=== PATIENT | male | born 1950 | race Caucasian/White ===

== ENCOUNTER 2016-07-29 03:55 | Inpatient (IN) | payer OTHER ==
[~2016-07-29] VITALS: Ht 182.9 cm; Wt 104.3 kg
[~2016-07-29 03:55] MED LIST: AMLODIPINE BESYL5 M1 PO; ATORVASTATIN CA20 M1 PO; DULOXETINE HCL30 MG PO; ELIQUIS5 M1 PO; FLECAINIDE ACE100 M1 PO; LOSARTAN POTASS25 M1 PO; TOPROL XL50 M1 PO
--- NOTE | 2016-07-29 15:02 | Admission Core Measures ---
Admission Meds I reviewed the following Meds: Current Medications Sig/Glenys Start time Last Medication Dose Stop Time Status Admin Acetaminophen 975 MG ONCE 07/29 NR (Tylenol) 07/29 2358 Amlodipine Besylate 5 MG DAILY 07/30 1000 UNVr (Norvasc) Cefazolin Sodium 2,000 MG ONCE 07/29 NR (Kefzol-Ancef Inj) 07/29 2358 Duloxetine HCl 30 MG DAILY 07/30 1000 UNVr (Cymbalta) Flecainide Acetate 100 MG BID 07/29 2199 UNVr (Tambocor 50 MG Tab) Losartan Potassium 25 MG DAILY 07/30 1000 UNVr (Cozaar) Metoprolol Succinate 50 MG DAILY 07/30 999 UNVr (Toprol Xl) Oxycodone HCl 10 MG ONCE 07/29 NR (Roxicodone) 07/29 2358 Acute Coronary Syndrome Inclusion Criteria ACS Diagnosis No Inpatient Core Measures LDL Reminder: If No, please order W/I first 24hr of stay Congestive Heart Failure Inclusion Criteria CHF Diagnosis No Cerebrovascular accident Inclusion Criteria CVA/TIA Diagnosis No Inpatient Core Measures Bedside Swallow Eval Reminder: If BSE failed, place ST order Antithrombotic Reminder: Order Antithrombotic Medication by end of day 2 Antithrombotic Reminder: Document Reason Antithrombotic Not ordered by end of day 2 AFIB/Flutter Reminder: If Present, add to problem list AFIB/Flutter Reminder: Order Anticoag Medication for pts with AFIB/Flutter Atherosclerosis Reminder: If Present, add to problem list LDL Reminder: If No, please order W/I first 24hr of stay PT Order Reminder: If No, please order Venous thromboembolism Inpatient Core Measures VTE Risk Factors: Age > 40, Surgery No [facility] VTE prophylaxis d/t No contraindications No VTE Pharm Prophylaxis d/t No contraindications Inclusion Criteria - Per Current guidelines, there needs to be overlap - treatment for the first 5 days of Warfarin therapy. - Parenteral Anticoagulation (IV or SC) needs to be - given along with Warfarin therapy. VTE Diagnosis No VTE Type NONE VTE Confirmed by (Test) NONE Problem List As ranked by this Provider includes Assessment & Plan 1. S/P total knee replacement HOME MEDS Home Med List Amlodipine Besylate 5 MG TABLET 1 TAB PO DAILY HTN (Reported) Duloxetine HCl 30 MG CAPSULE.DR 1 CAP PO DAILY depression (Reported) Flecainide Acetate 100 MG TABLET 1 TAB PO BID A FIB (Reported) Losartan Potassium 25 MG TABLET 1 TAB PO DAILY HTN (Reported) Metoprolol Succ XL (Toprol Xl) 50 MG TAB 1 TAB PO DAILY HTN (Reported) Discontinued Medications Apixaban (Eliquis) 5 MG TABLET 1 TAB PO BID A FIB (Reported) Discontinued reason: Changed Dose
--- NOTE | 2016-07-29 15:05 | Surgical Discharge Summary ---
Visit Information Visit Dates Admission Date: 07/29/16 Discharge Date: 08/01/2016 History of Present Illness Chief Complaint: See H and P Surgical History Pertinent Surgical History: non-contributory Review of Systems: See H and P Hospital Course Course Attending Physician: JAHAIRA RUFF MD Primary Care Physician: AWA ZHAO,[facility] Course: Pt was admitted on 07/29 after undergoing a left tkr by Dr Ruff. He tolerated the procedure well. Over the course of the next couple of days, he was able to void without difficulty, his pain was well controlled with oral pain medication and he worked with PT. He was deemed stable for discharge by PT to home with services. He was continued on eliquis post op for both a fib and dvt prophylaxis post op joint replacement. Allergies: Coded Allergies: banana (Severe, ANAPHYLAXIS 07/25/16) latex (Severe, ANAPHYLAXIS 07/25/16) Penicillins (Mild, HIVES 07/29/16) Disposition Summary Disposition Principal Diagnosis: DJD Additional Diagnosis: a fib Discharge Disposition: home health services Discharge Instructions General Discharge Information Code Status: Full Code Patient's Diet: heart healthy Patient's Activity: WBAT Follow-Up Instructions/Appts: Keep scheduled appointment, call sooner if needed Medications at Discharge Discharge Medications: Stop taking the following medications: Apixaban (Eliquis) 5 MG TABLET ORAL TWICE DAILY Continue taking these medications: Metoprolol Succ XL (Toprol Xl) 50 MG TAB 1 Tablet ORAL DAILY Losartan Potassium (Losartan Potassium) 25 MG TABLET 1 Tablet ORAL DAILY Amlodipine Besylate (Amlodipine Besylate) 5 MG TABLET 1 Tablet ORAL DAILY Duloxetine HCl (Duloxetine HCl) 30 MG CAPSULE.DR 1 Capsule ORAL DAILY Flecainide Acetate (Flecainide Acetate) 100 MG TABLET 1 Tablet ORAL TWICE DAILY Start taking the following new medications: Docusate Sodium (Colace) 100 MG CAPSULE 1 Capsule ORAL TWICE DAILY Qty = 14 No Refills Polyethylene Glycol 3350 (Miralax) 17 GRAM POWD.PACK 1 Packet ORAL DAILY Qty = 7 No Refills Instructions: dissolve in water Hydromorphone HCl (Dilaudid) 4 MG TABLET 1-2 Tablet ORAL EVERY 4 HOURS NEEDED Qty = 36 No Refills Morphine Sulfate (Ms Contin) 30 MG TABLET.ER 1 Tablet ORAL TWICE DAILY Qty = 12 No Refills Apixaban (Eliquis) 2.5 MG TABLET 1 Tablet ORAL TWICE DAILY Qty = 60 No Refills Instructions: Take 2.5 mg twice daily instead of the eliquis 5mg tabs. Continue for a total of 30 days. Then return to previous dose of 5mg twice daily. Do not take both at the same time.
--- NOTE | 2016-07-29 15:07 | Patient Discharge Instructions ---
Discharge Instructions General Discharge Information You were seen/treated for: knee pain You had these procedures: total knee replacement Watch for these problems: temp>101, increased redness or drainage of wound, inability to bear weight Do not soak the wound: Yes No bath, but you may shower: Yes Other wound care: Keep incision clean and dry Special Instructions: Take the new dose of eliquis 2.5mg twice daily for the next 30 days. Do not take the previous dose of 5mg twice daily at the same time. After 30 days, return to previously prescribed dose of 5mg twice daily. Diet Recommended Diet: Heart Healthy Activity Activity Self Limited: Yes Activity Limited to: Weight bear as tolerated Acute Coronary Syndrome Inclusion Criteria At DC or during hospital stay patient has or had the following: ACS DIAGNOSIS No Discharge Core Measures Meds if any: Prescribed or Continued at Discharge Meds if any: NOT Prescribed or Continued at Discharge Congestive Heart Failure Inclusion Criteria At DC or during hospital stay patient has or had the following: CHF DIAGNOSIS No Discharge Core Measures Meds if any: Prescribed or Continued at Discharge Meds if any: NOT Prescribed or Continued at Discharge Cerebrovascular accident Inclusion Criteria At DC or during hospital stay patient has or had the following: CVA/TIA Diagnosis No Discharge Core Measures Meds if any: Prescribed or Continued at Discharge Meds if any: NOT Prescribed or Continued at Discharge Venous thromboembolism Inclusion Criteria VTE Diagnosis No VTE Type NONE VTE Confirmed by (Test) NONE Discharge Core Measures - Per Current guidelines, there needs to be overlap - treatment for the first 5 days of Warfarin therapy. - If discharged on Warfarin prior to 5 days of - overlap therapy, the patient will need to be - assessed for post discharge needs including - *Post discharge parental anticoagulation - *Warfarin and/or parental anticoagulation education - *Follow up date to check INR post discharge At least 5 days overlap therapy as Inpatient No Meds if any: Prescribed or Continued at Discharge Note: Overlap Therapy is Warfarin and Anticoagulant Meds if any: NOT Prescribed or Continued at Discharge
[2016-07-29] MEDS ORDERED: MS CONTIN30 M1 PO (15:09)
[2016-07-29] MEDS ORDERED: MIRALAX17 G1 PO (15:09)
[2016-07-29] MEDS ORDERED: COLACE100 M1 PO (15:09)
[2016-07-29] MEDS ORDERED: DILAUDID4 M1 PO (15:09)
--- NOTE | 2016-07-29 16:41 | Operative Report ---
Operative/Inv Procedure Report Surgery Date: 07/29/16 Name of Procedure: Left total knee replacement Pre-Operative Diagnosis: Primary left knee DJD Post-Operative Diagnosis: Same Estimated Blood Loss: 50ml to 100ml Surgeon/Deputy Sheriff [id number] Handler: ELZBIETA ZHAO,JAHAIRA Tomas Anesthesia: block Operative/Procedure Note Note: Description of Procedure: The patient was taken to the operating room and positively identified. After induction of spinal anesthesia and administration of appropriate pre-operative antibiotics, the patient was positioned supine on the operating room table and all bony prominences were well padded. A well-padded pneumatic tourniquet was placed on the left upper thigh. After performing a surgical timeout, the left lower extremity was prepped and draped in the usual sterile fashion. After exsanguination with Esmarch the tourniquet was inflated to 250mm of mercury. A standard medial parapatellar approach was made to the knee. This was carried down through skin and subcutaneous tissue to the level of the fascia. Meticulous hemostasis was maintained with Bovie electrocautery. The extensor mechanism and patellar retinaculum were opened sharply and the patella was everted. The infrapatellar fat was resected in order to improve exposure. Osteophytes were trimmed from the patella and femoral condyles and the patella was re-everted and tucked laterally. A medial release was performed and the cruciate ligaments were resected. The tibia was then subluxed anteriorly. Utilizing the appropriate extra-medullary guide, the proximal tibia was trimmed perpendicular to the long axis of the tibial shaft. Attention was then turned to the femur. After opening the medullary canal, the distal femoral cut was made in 6 degrees of valgus utilizing the appropriate intra-medullary guide. The extension gap was checked and found to be appropriate. The femur was then sized and the remainder of the femoral cuts were made with a size 5 4-in-1 femoral cutting guide. The flexion gap was checked and found to be symmetric and appropriate. The knee was then trialed with a size 5 femoral component, a size 6 tibial component and a size 13 mm polyethylene insert. The patella was not resurfaced due to its excellent preoperative condition. This yielded excellent range of motion, stability and patellar tracking. All trial components were removed and the knee was copiously irrigated with sterile saline. All components were cemented into place with [place] Simplex cement. All the components were of the Kim Triathlon knee system of the above stated sizes. The knee was again irrigated after cementation. The extensor mechanism and patellar retinaculum were repaired using interrupted #1 vicryl suture. The skin was re-approximated with 2-0 vicryl and closed with jennie. A sterile dressing was applied, the tourniquet was deflated, the patient was awakened and taken to the recovery room in satisfactory condition.
[2016-07-29] MEDS ORDERED: ELIQUIS2.5 M1 PO (17:20)
--- NOTE | 2016-07-29 18:12 | PN- Orthopedic ---
Subjective Subjective: POC S/P LEFT TKA NO MAJOR COMPLAINTS NOW DENIES CP, SOB, NO N+V, NO PALPITATIONS Objective Vital Signs and I&Os VSS Physical Exam: CV: NSR, NO ECTOPY LUNGS: CLEAR ABD: SOFT, +BS EXT: LEFT LE DRSG DRY DISTAL CMS TOES WARM C/O TINGLING IN LEFT BIG TOE Assessment/Plan Assessment/Plan ORTHO STABLE PLAN NO AFIB NOTED SINCE ADMISSION TODAY HE DENIES CARDIAC SYPTOMS FOR MORE THAN 4 MONTHS CURRENTLY DENIES CP, PALPITATIONS ELIQUIS CHANGED ROM 5MG PO BID TO 2.5MG PO BID ADDUCTOR CANAL BLOCK BEING PLACED BY ANESTHESIA NOW OK FOR FLOOR TRANSFER Core Measures/Miscellaneous Venous Thromboembolism VTE Risk Factors: Age > 40, Surgery VTE Contraindications: No Contraindications VTE Diagnosis: No VTE Type: NONE VTE Confirmed by (Test): NONE Beta Tolu Is Beta Tolu a Home Med? Yes Antibiotics Is Patient on Antibiotics? Yes
[2016-07-29 20:50] VITALS: BP 120/80
[2016-07-29 23:20] VITALS: BP 118/84
[2016-07-30 01:00] VITALS: BP 118/78
[2016-07-30 02:49] VITALS: BP 118/62
[2016-07-30 07:26] VITALS: BP 118/62
[2016-07-30 08:16] LABS: ABSOLUTE BASOPHIL COUNT 0 /CUMM (0.0-0.2); ABSOLUTE EOSINOPHIL COUNT 0 /CUMM (0.0-0.7); ABSOLUTE GRANULOCYTE CT 13.4 /CUMM (1.4-6.5); ABSOLUTE LYMPH COUNT 0.5 /CUMM (1.2-3.4); ABSOLUTE MONOCYTE COUNT 0.3 /CUMM (0.10-0.60); BASOPHIL % 0 % (0.0-2.0); EOSINOPHIL % 0 % (0-5); HEMATOCRIT 37.8 % (42-52); MEAN CORPUSCULAR HGB 31.9 PG (27.0-31.0); MEAN CORPUSCULAR HGB CONC 33.9 G/DL (33.0-37.0); MEAN CORPUSCULAR VOLUME 94.1 FL (80.0-94.0); MEAN PLATELET VOLUME 8.4 FL (7.4-10.4); PLATELET COUNT 242 /CUMM (130-400); RBC DISTRIBUTION WIDTH 12.2 % (11.5-14.5); RED BLOOD CELL CT 4.01 /CUMM (4.70-6.10); WHITE BLOOD CELL COUNT 14.2 /CUMM (4.8-10.8)
--- NOTE | 2016-07-30 08:34 | PN- Orthopedic ---
Subjective Subjective: Complaints of pain to the anterior knee, pain is controlled with IV morphine. He is voiding, denies any fever or flulike illness pain no chest pain or shortness of breath. Objective Vital Signs and I&Os Vital Signs Date Time Temp Pulse Resp B/P B/P Pulse O2 O2 Flow FiO2 Mean Ox Delivery Rate 07/30 07 97.7 67 20 118/62 91 Room Air 07/30 0249 97.7 90 20 118/62 90 Room Air 07/30 0100 97.7 69 20 118/78 95 CPAP 07/29 2320 97.6 66 18 118/84 92 Room Air 07/29 2050 97.6 64 18 120/80 91 Room Air Intake & Output 07/30 0000 07/29 1600 07/29 0000 Intake Total 800 Output Total 600 300 Balance 200 -300 Intake, IV 800 Output, Urine 600 300 Patient 230 lb Weight Physical Exam: Well-developed well-nourished no apparent distress. HEENT: Atraumatic, extraocular motion intact Neck: Supple, no lymphadenopathy Respiratory: No respiratory distress Extremities: No edema LEFT lower extremity dressing in place, Range of motion is 0-[address] ALPS in place Neurovascularly intact distally Bilateral calves are supple, nontender. Neuro: Alert and oriented x3 Psych: Mood affect normal, normal memory normal judgment. Skin: Warm and dry, no rash on exposed skin Results Last 48 Hours of Labs: Laboratory Tests 07/30 0640 Chemistry Sodium (137 - 145 mmol/L) 138 Potassium (3.5 - 5.1 mmol/L) 4.2 Chloride (98 - 107 mmol/L) 103 Carbon Dioxide (22 - 30 mmol/L) 23 Anion Gap (5 - 16) 12 BUN (9 - 20 mg/dL) 16 Creatinine (0.7 - 1.2 mg/dL) 0.7 Estimated GFR (>60 ml/min) > 60 BUN/Creatinine Ratio (7 - 25 %) 22.9 Hematology CBC w Diff Pending WBC Pending RBC Pending Hgb Pending Hct Pending MCV Pending MCH Pending RDW Pending Plt Count Pending MPV Pending PUBS MCHC Pending Assessment/Plan Assessment/Plan Postop day #1 status post left total knee arthroplasty Follow a.m. labs Perioperative antibiotics completed eliquis 2.5 twice a day for DVT prophylaxis Add MS 15mg bid for pain Dressing change tomorrow OOB w PT DC IVF Core Measures/Miscellaneous Venous Thromboembolism VTE Risk Factors: Age > 40, Surgery VTE Contraindications: No Contraindications VTE Diagnosis: No VTE Type: NONE VTE Confirmed by (Test): NONE Beta Tolu Is Beta Tolu a Home Med? Yes Antibiotics Is Patient on Antibiotics? Yes
[2016-07-30 09:52] LABS: GRANULOCYTE % 94.2 % (42.2-75.2)
[2016-07-30 11:14] VITALS: BP 110/78
--- NOTE | 2016-07-30 13:39 | Event Note ---
Event Note Event Note: Called by nurse to eval pt with increased L knee pain, lateral aspect. While staff was in the room, he was sitting on chair and staff went to move the table stand and it hit him on the lateral aspect of the L foot causing severe lateral l knee pain and inability to wb since. dressing is CDI, severe tenderness laterally, + effusion, ROM 5-60, no instability but exam is limited, severe pain w palp laterally and pain with varus stress. will hold off on PT at this time, obtain xray prior to further activity.
[2016-07-30 14:51] VITALS: BP 110/84
--- NOTE | 2016-07-30 16:34 | RADIOLOGY REPORT ---
EXAMINATION: XR KNEE, LEFT CLINICAL INFORMATION: Left lateral knee pain. Evaluate for fracture of the lateral compartment. Minor postoperative injury with varus stress. COMPARISON: None TECHNIQUE: Four views of the left knee. FINDINGS: The patient is status post total knee replacement with no evidence of hardware failure or deering bone fracture seen. Prominent soft tissue edema and subcutaneous emphysema are noted over the anterior knee, consistent with postoperative changes. Midline anterior cutaneous staple line is also noted. IMPRESSION: Anatomic alignment status post total left knee arthroplasty with no evidence of hardware failure or deering bone fracture seen.
[2016-07-31 06:53] VITALS: BP 150/84
--- NOTE | 2016-07-31 07:30 | PN- Orthopedic ---
Subjective Subjective: POD#2 S/P LEFT TKA CONTINUED PAIN ISSUES TODAY C/O PRIMARILY LATERAL KNEE PAIN DENEIS CP, SOB, NO N+V WITH DIET Objective Vital Signs and I&Os Vital Signs Date Time Temp Pulse Resp B/P B/P Pulse O2 O2 Flow FiO2 Mean Ox Delivery Rate 07/31 0653 98.4 72 20 150/84 90 / 1451 97.5 65 20 110/84 93 / 1114 97.6 74 20 110/78 94 07/30 0928 102/56 07/30 0928 102/56 07/30 0928 102/56 Intake & Output 07/31 0807/31 0000 07/30 1600 07/30 0800 07/30 0000 07/29 1600 Intake Total 950 800 Output Total 300 300 500 600 Balance -300 -300 450 200 Intake, IV 150 800 Intake, Oral 800 Output, Urine 300 300 500 600 Patient 230 lb Weight Physical Exam: CV: RRR LUNGS: CLEAR ABD: SOFT, +BS EXT: DRSG CHANGED, WOUND C/D/I MILD LEFT CALF TENDERNESS TO PALP, NO HOMANS PRESENT DISTAL CMS INTACT Assessment/Plan Assessment/Plan CONTINUED PAIN ISSUES PLAN ICE TO LEFT KNEE AT ALL TIMES TODAY TORADOL NOW CONTINUE OOB WITH PT POSSIBLE U/S TO R/O LEFT LEG DVT IF CALF PAIN PERSISTS HOME DVT PLANNING Core Measures/Miscellaneous Venous Thromboembolism VTE Risk Factors: Age > 40, Surgery VTE Contraindications: No Contraindications VTE Diagnosis: No VTE Type: NONE VTE Confirmed by (Test): NONE Beta Tolu Is Beta Tolu a Home Med? Yes Antibiotics Is Patient on Antibiotics? Yes
[2016-07-31 14:26] VITALS: BP 138/78
[2016-07-31 22:46] VITALS: BP 160/90
[2016-08-01 06:48] VITALS: BP 150/80
--- NOTE | 2016-08-01 08:23 | PN- Orthopedic ---
Subjective Subjective: OOB in chair No complaints overnight Pain well controlled on meds Ambulating with PT without difficulty Objective Vital Signs and I&Os Vital Signs Date Time Temp Pulse Resp B/P B/P Pulse O2 O2 Flow FiO2 Mean Ox Delivery Rate 08/01 0648 97.6 70 20 150/80 94 Room Air 07/31 2246 98.0 72 20 160/90 92 Room Air 07/31 1426 99.2 74 20 138/78 92 Room Air 07/31 0824 138/72 07/31 0824 138/72 07/31 0823 13872 Intake & Output 08/01 0808/01 0000 07/31 1600 07/31 0807/31 0000 Intake Total 150 700 800 Output Total 350 200 300 300 Balance -200 700 600 -300 -300 Intake, Oral 150 700 800 Output, Urine 350 200 300 300 Physical Exam: Tmax 99.2, Tcurrent 97.6 VSS Voidiing without difficulty General; alert and oriented times three Chest: clear bilaterally, RRR Abd: soft, good bs Ext: warm, positive sensate, no calf tenderness L knee: wound looks good, jennie intact, no drainage, mild edema around wound Assessment/Plan Assessment/Plan 65 yo male s/p L TKR pod 3 fu PT dc if cleared by PT Continue current pain regimen Eliquis 2.5mg po bid for dvt ppx as pt is on eliquis pre-op for paroxysmal a fib Dose has been changed from 5mg po bid to 2.5mg po bid post op per Dr Ely Discussed dosing changes with pt and he is fully aware all dc instructions given bowel regimen Core Measures/Miscellaneous Venous Thromboembolism VTE Risk Factors: Age > 40, Surgery VTE Contraindications: No Contraindications VTE Diagnosis: No VTE Type: NONE VTE Confirmed by (Test): NONE Beta Tolu Is Beta Tolu a Home Med? Yes Antibiotics Is Patient on Antibiotics? No
[2016-08-01 08:45] VITALS: BP 156/76
== END 2016-08-01 11:20 | disposition home health service (06) | DRG 470 ==
LOC: SDA 03:55 → 2NA 03:55 → ENRESERV 17:30 → 2NA 20:25 → ENPENDDIS 08-01 10:24 → 2NA 08-01 11:20
PROVIDERS: Physician Assistant Surgical; ADMIT Orthopaedic Surgery
PROC: 0SRD0J9 Replacement of Left Knee Joint with Synthetic Substitute, Cemented, Open Approach (ICD-10-PCS; principal; 2016-07-29)
PROC: 3E0T3CZ (ICD-10-PCS; 2016-07-29)
DX: M17.12 Unilateral primary osteoarthritis, left knee (principal); I48.0 Paroxysmal atrial fibrillation; I10 Essential (primary) hypertension; E78.5 Hyperlipidemia, unspecified; F32.9 Major depressive disorder, single episode, unspecified; I25.10 Atherosclerotic heart disease of native coronary artery without angina pectoris; G47.33 Obstructive sleep apnea (adult) (pediatric); E66.9 Obesity, unspecified; Z68.31 Body mass index [BMI] 31.0-31.9, adult
CPT/HCPCS: 2NASP; 73562-LT; 82436; 88305; 97110-GO; 97116-GO; 97161-GP; 97530-GO; C1713; J0690; J1200; J1885; J2405; J2795; J7042